=== PATIENT | female | born 1955 | race American Indian/Alaskan Native ===

== ENCOUNTER 2018-08-14 08:36 | Emergency (ER) | payer BC ==
[2018-08-14 09:01] VITALS: BMI 26.9
[2018-08-14 09:21] VITALS: RESP 18; TEMP 98.5
[2018-08-14] MEDS ORDERED: DiphenhydrAMINE 50 mg/ml Inj IM STA (09:26)
--- NOTE | 2018-08-14 09:26 | ED PDOC ---
Arrival/HPI - General Chief Complaint: Allergic Reaction Historian: Patient - History of Present Illness Narrative History of Present Illness (Text): 08/14/18 09:21 63 y/o female, pmh including htn/dm, allergic to penicillin, post menopausal, c/o lt. sided facial and lip swelling x 1 day. Pt. stated that she has no food allergy, went to sleep last night and feeling well with no swelling or itching facial/lip, woke up this morning with lt. sided facial swelling and lip swelling, no pain or itching, stated that it possibly bitten by insects, no ear or throat pain, no difficulty talking/speaking/swallowing, no difficulty closing or opening the eye, no numbness or tingling, no other medical or psychological complaints. Past Medical History - Provider Review Nursing Documentation Reviewed: Yes - Reproductive Menopause: Yes - Cardiac Hx Cardiac Disorders: Yes Hx Hypertension: Yes - Endocrine/Metabolic Hx Endocrine Disorders: Yes Hx Diabetes Mellitus Type 2: Yes - Psychiatric Hx Substance Use: No Family/Social History - Physician Review Nursing Documentation Reviewed: Yes Family/Social History: Unknown Family HX Smoking Status: Heavy Smoker > 10 Cigarettes Daily Hx Alcohol Use: Yes Frequency of alcohol use: Socially Hx Substance Use: No Allergies/Home Meds Allergies/Adverse Reactions: Allergies Penicillins Allergy (Verified 08/14/18 09:00) SWELLING Home Medications: Home Meds Medication Instructions Recorded Confirmed Aspirin [Aspirin Chewable] 81 mg PO DAILY 08/14/18 08/14/18 Esomeprazole Magnesium [Nexium] 40 mg PO DAILY 08/14/18 08/14/18 Metformin HCl [Fortamet] 1,000 mg PO BID 08/14/18 08/14/18 SITagliptin [Januvia] 100 mg PO DAILY 08/14/18 08/14/18 amLODIPine [Norvasc] 10 mg PO DAILY 08/14/18 08/14/18 Review of Systems - Review of Systems Constitutional: absent: Fatigue, Fevers Eyes: absent: Vision Changes ENT: absent: Hearing Changes Respiratory: absent: SOB, Cough Cardiovascular: absent: Chest Pain Gastrointestinal: absent: Abdominal Pain, Nausea, Vomiting Skin: Rash. absent: Pruritis, Skin Lesions, Laceration, Abscess, Ulcer, Cellulitis Neurological: absent: Headache, Dizziness Hemo/Lymphatic: absent: Adenopathy Psychiatric: absent: Anxiety, Depression Physical Exam Vital Signs Reviewed: Yes Vital Signs Temp Pulse Resp BP Pulse Ox 08/14/18 09:01 98.5 F 93 H 18 205/98 H 96 Temperature: Afebrile Blood Pressure: Hypertensive Pulse: Regular Respiratory Rate: Normal Appearance: Positive for: Well-Appearing, Non-Toxic, Comfortable Pain Distress: None Mental Status: Positive for: Alert and Oriented X 3 - Systems Exam Head: Present: Atraumatic, Normocephalic, Other (Facial: +lt. sided facial and lt. lateral lip swelling with no vesicular lesions, no cellulitis or ulcers, no focal neurological deficits, sensation intact. ). No: Tenderness, Contusion, Swelling, Ecchymosis, Abrasion, Laceration Pupils: Present: PERRL Extroacular Muscles: Present: EOMI Conjunctiva: Present: Normal Ears: Present: NORMAL TM, Normal Canal. No: Erythema Mouth: Present: Moist Mucous Membranes Pharnyx: No: ERYTHEMA, EXUDATE, TONSILS ENLARGED, Peritonsilar Swelling, Uvular Deviation, Muffled/Hoarse Voice, Strider, Soft Palate/Uvular Edema Nose (External): Present: Atraumatic. No: Abrasion, Contusion, Laceration Nose (Internal): Present: Normal Inspection, No Active Bleeding. No: Rhinorrhea, Septal Deviation, Septal Hematoma, Epistaxis Neck: Present: Normal Range of Motion Respiratory/Chest: Present: Clear to Auscultation, Good Air Exchange. No: Respiratory Distress, Accessory Muscle Use, Wheezes, Decreased Breath Sounds, Rales, Retracting, Rhonchi, Tachypneic, Tender to Palpation Cardiovascular: Present: Regular Rate and Rhythm, Normal S1, S2. No: Murmurs Abdomen: No: Tenderness, Distention, Peritoneal Signs, Rebound, Guarding Back: Present: Normal Inspection. No: CVA Tenderness, Midline Tenderness, Paraspinal Tenderness Upper Extremity: Present: Normal Inspection, Normal ROM, NORMAL PULSES. No: Cyanosis, Edema, Tenderness, Swelling Lower Extremity: Present: Normal Inspection, NORMAL PULSES, Normal ROM, Capillary Refill < 2 s. No: Edema, Tenderness, Swelling, Deformity Neurological: Present: GCS=15, CN II-XII Intact, Speech Normal, Motor Func Grossly Intact, Gait Normal, Memory Normal, Other (NIHSS is zero, normal finger to nose, normal heel to reyna) Skin: Present: Warm, Dry, Normal Color. No: Rashes Lymphatic: No: Cervical Adenopathy Psychiatric: Present: Alert, Oriented x 3, Normal Insight, Normal Concentration Medical Decision Making ED Course and Treatment: 08/14/18 09:30 -Benadryl/pepcid/prednisone -Observe and reassesss 08/14/18 10:12 -I reviewed all medication side effects with the medication and discussed that the calvin has less than 1% chance of developing hypersensitivity reaction such as angioedema/rash/urticaria/skin conditions, advised her to further review medications with her own pmd to see any other cause for her skin condition today. 08/14/18 12:47 -Facial and lip swellling decreased significantly, pt. feels much better. BP improved as well. -Discharge home with benadryl, pepcid, prednisone, please follow up with your own pmd within 2 days for blood pressure follow up, avoid contact with possible allergen, follow up with your own pmd and barrel inspector within 2 days, return to the ER for any new or worsening signs or symptoms. - PA / SHIP RIGGER / Resident Statement / has reviewed & agrees with the documentation as recorded. Disposition/Present on Arrival - Present on Arrival Any Indicators Present on Arrival: No History of DVT/PE: No History of Uncontrolled Diabetes: No Urinary Catheter: No History of Decub. Ulcer: No History Surgical Site Infection Following: None - Disposition Have Diagnosis and Disposition been Completed?: Yes Diagnosis: Facial swelling, HTN (hypertension) Disposition: HOME/ ROUTINE Disposition Time: 12:48 Patient Plan: Discharge Patient Problems: Current Active Problems Problem Status Onset Facial swelling Acute HTN (hypertension) Acute Condition: IMPROVED Discharge Instructions (ExitCare): High Blood Pressure in Adults, Low Salt Diet Additional Instructions: -Discharge home with benadryl, pepcid, prednisone, please follow up with your own pmd within 2 days for blood pressure follow up, avoid contact with possible allergen, follow up with your own pmd and barrel inspector within 2 days, return to the ER for any new or worsening signs or symptoms. Prescriptions: DiphenhydrAMINE [Benadryl] 50 mg PO QID PRN #20 cap PRN Reason: Other Famotidine [Pepcid] 20 mg PO BID #10 tab predniSONE [predniSONE Tab] 2 tab PO DAILY #8 tab Referrals: Christiano Baker MD [Staff Provider] - Follow up with primary [facility] [place] - Follow up with primary Forms: [facility] (Frisian), WORK NOTE
[2018-08-14 12:34] VITALS: BP 129/64; PULSE 88; O2SAT 99
== END 2018-08-14 12:53 | disposition home or self-care (01) ==
LOC: ED 08:36
DX: R22.0 Localized swelling, mass and lump, head (principal); I10 Essential (primary) hypertension; E11.9 Type 2 diabetes mellitus without complications; Z88.0 Allergy status to penicillin; F17.210 Nicotine dependence, cigarettes, uncomplicated
CPT/HCPCS: 96372; 99283; J1200

== ENCOUNTER 2018-08-28 09:34 | Outpatient (CLI) | payer BC | END 2018-08-28 09:35 | disposition home or self-care (01) | LOC: RAD 09:34 ==